=== PATIENT | male | born 2000 | race Two or more races ===

== ENCOUNTER 2021-05-20 05:10 | Emergency (ER) | payer OTHER ==
[~2021-05-20] VITALS: Ht 182.9 cm; Wt 55.0 kg
[2021-05-20 06:23] LABS: MICROSCOPIC INDICATED
[2021-05-20] MEDS ORDERED: KETOROLAC 30 MG/1 ML ONE (06:26)
[2021-05-20] MEDS ORDERED: KETOROLAC 30 MG/1 ML IM ONE (06:30)
[2021-05-20 07:13] VITALS: BP 115/72
== END 2021-05-20 07:15 | disposition home or self-care (01) ==
LOC: ED 06:21
DX: N23 Unspecified renal colic (principal)
CPT/HCPCS: 74018; 81001; 96372; 99284; J1885